=== PATIENT | male | born 1980 | race Caucasian/White ===

== ENCOUNTER 2019-12-11 23:00 | Observation (INO) | payer BC ==
[~2019-12-11] VITALS: Ht 188 cm; Wt 122.7 kg
[2019-12-11 23:15] LABS: BILIRUBIN,URINE SMALL (NEG); CLARITY,URINE CLEAR; COLOR,URINE AMBER; NITRITE,URINE NEGATIVE (NEG); PROTEIN,URINE NEGATIVE (NEG-TRACE)
[2019-12-11] MEDS ORDERED: IV NORMAL SALINE 1000ML BAG 1,000 ML IV ONE (23:15)
[2019-12-11 23:21] LABS: RBC,URINE OCC /HPF (0-2)
[2019-12-11 23:21] LABS: BASO # 0.1 x10^3/uL (0.0-0.2); BASO % 1 % (0-3); EOS # 0.3 x10^3/uL (0.0-0.7); EOS % 2 % (0-3); HEMATOCRIT 43.1 % (39.0-53.0); HEMOGLOBIN 14.8 g/dL (13.0-17.5); LYMPH # 3.1 x10^3/uL (1.0-4.8); LYMPH % 26 % (24-48); MEAN CORPUSCULAR HEMOGLOBIN 31 pg (25-35); MEAN CORPUSCULAR HGB CONC 34 g/dL (31-37); MEAN CORPUSCULAR VOLUME 89 fL (79-100); MONO # 0.7 x10^3/uL (0.0-1.1); MONO % 6 % (0-9); NEUT # 7.7 x10^3/uL (1.8-7.7); NEUT % 65 % (31-73); PLATELET COUNT 309 x10^3/uL (140-400); RED BLOOD COUNT 4.85 x10^6/uL (4.30-5.70); RED CELL DISTRIBUTION WIDTH 13.7 % (11.5-14.5); WHITE BLOOD COUNT 11.9 x10^3/uL (4.0-11.0)
[2019-12-11 23:22] LABS: BACTERIA,URINE FEW /HPF (0-FEW); GRANULAR CASTS,URINE FEW /HPF; HYALINE CASTS, URINE MODERATE /HPF; SQUAMOUS EPITHELIAL CELL,UR MOD /LPF
[2019-12-11 23:27] LABS: CALCIUM 8.5 mg/dL (8.5-10.1); CREATININE 1.3 mg/dL (0.7-1.3); GFR 60.8
[2019-12-11] MEDS ORDERED: KETOROLAC 30 MG/ML VIAL. IV ONE (23:30)
[2019-12-11] MEDS ORDERED: ONDANSETRON PF 4 MG/2 ML VIAL. IV ONE (23:30)
[2019-12-11] MEDS ORDERED: fentaNYL PF VIAL 100 MCG/2 ML VIAL IV ONE (23:30)
[2019-12-11] MEDS ORDERED: TAMSULOSIN 0.4 MG CAP.ER.24H. PO ONE (23:30)
[2019-12-11 23:32] LABS: ALBUMIN 3.5 g/dL (3.4-5.0); ALBUMIN/GLOBULIN RATIO 0.9 (1.0-1.7); TOTAL BILIRUBIN 0.5 mg/dL (0.2-1.0); TOTAL PROTEIN 7.3 g/dL (6.4-8.2)
--- NOTE | 2019-12-11 23:47 | PHYS DOC ---
Past Medical History Past Medical History: Kidney Stone General Adult EDM: Chief Complaint: BACK PAIN OR INJURY HPI: HPI: Patient is a 39-year-old male with a history of kidney stones who presents with an acute onset of left flank pain that radiates to his groin. States it started about an hour ago. He states that sharp in nature and unrelenting. He denies any fever chills or sweats. He says he has had some nausea secondary to the pain. He denies any dysuria or gross hematuria. He did not try to take anything at home to help alleviate the symptoms. He does state that he has been drinking plenty of fluids recently. [] Review of Systems: Review of Systems: Constitutional: Denies fever or chills. [] Eyes: Denies change in visual acuity. [] HENT: Denies nasal congestion or sore throat. [] Respiratory: Denies cough or shortness of breath. [] Cardiovascular: Denies chest pain or edema. [] GI: Per HPI. [] : Denies dysuria. [] Musculoskeletal: Denies back pain or joint pain. [] Integument: Denies rash. [] Neurologic: Denies headache, focal weakness or sensory changes. [] Endocrine: Denies polyuria or polydipsia. [] Lymphatic: Denies swollen glands. [] Psychiatric: Denies depression or anxiety. [] Heart Score: Risk Factors: Risk Factors: DM, Current or recent (<one month) smoker, HTN, HLP, family hi story of CAD, obesity. Risk Scores: Score 0 - 3: 2.5% MACE over next 6 weeks - Discharge Home Score 4 - 6: 20.3% MACE over next 6 weeks - Admit for Clinical Observation Score 7 - 10: 72.7% MACE over next 6 weeks - Early Invasive Strategies Current Medications: Current Medications Medications (Trade) Dose Ordered Sig/[facility] Start Time Stop Time Status Last Admin Dose Admin Fentanyl Citrate (Fentanyl 2ml Vial) 50 mcg 1X ONCE 12/11/19 23:30 12/11/19 23:31 DC 12/11/19 23:44 50 MCG Ketorolac Tromethamine (Toradol 30mg Vial) 30 mg 1X ONCE 12/11/19 23:30 12/11/19 23:31 DC 12/11/19 23:28 30 MG Ondansetron HCl (Zofran) 4 mg 1X ONCE 12/11/19 23:30 12/11/19 23:31 DC 12/11/19 23:27 4 MG Sodium Chloride 1,000 ml @ 1,000 mls/hr 1X ONCE 12/11/19 23:15 12/12/19 00:14 12/11/19 23:27 1,000 MLS/HR Tamsulosin HCl (Flomax) 0.4 mg 1X ONCE 12/11/19 23:30 12/11/19 23:31 DC 12/11/19 23:43 0.4 MG Allergies: Allergies: Allergies Coded Allergies Type Severity Reaction Last Updated Verified Penicillins Allergy Intermediate HIVES 12/11/19 Yes amoxicillin Allergy Intermediate HIVES 12/11/19 Yes Physical Exam: PE: Constitutional: Well developed, well nourished, moderate to severe distress, non-toxic appearance. [] HENT: Normocephalic, atraumatic, bilateral external ears normal, oropharynx moist, no oral exudates, nose normal. [] Eyes: PERRLA, EOMI, conjunctiva normal, no discharge. [] Neck: Normal range of motion, no tenderness, supple, no stridor. [] Cardiovascular:Heart rate regular rhythm, no murmur [] Lungs & Thorax: Bilateral breath sounds clear to auscultation [] Abdomen: Bowel sounds normal, soft, no tenderness, no masses, no pulsatile masses. [] Skin: Warm, dry, no erythema, no rash. [] Back: No tenderness, no CVA tenderness. [] Extremities: No tenderness, no cyanosis, no clubbing, ROM intact, no edema. [] Neurologic: Alert and oriented X 3, normal motor function, normal sensory function, no focal deficits noted. [] Psychologic: Extremely anxious. [] Current Patient Data: Labs: Laboratory Tests Test 12/11/19 23:00 12/11/19 23:07 Urine Collection Type Void Urine Color Re Urine Clarity Clear Urine pH 5.0 (<5.0-8.0) Urine Specific [place] 1.025 (1.000-1.030) Urine Protein Negative mg/dL (NEG-TRACE) Urine Glucose (UA) 100 mg/dL (NEG) Urine Ketones (Stick) Negative mg/dL (NEG) Urine Blood Small (NEG) Urine Nitrite Negative (NEG) Urine Bilirubin Small (NEG) Urine Urobilinogen Dipstick 1.0 mg/dL (0.2 mg/dL) Urine Leukocyte Esterase Negative (NEG) Urine RBC Occ /HPF (0-2) Urine WBC 1-4 /HPF (0-4) Urine Squamous Epithelial Cells Mod /LPF Urine Bacteria Few /HPF (0-FEW) Urine Hyaline Casts Moderate /HPF Urine Granular Casts Few /HPF Urine Mucus Marked /LPF White Blood Count 11.9 x10^3/uL (4.0-11.0) H Red Blood Count 4.85 x10^6/uL (4.30-5.70) Hemoglobin 14.8 g/dL (13.0-17.5) Hematocrit 43.1 % (39.0-53.0) Mean Corpuscular Volume 89 fL (79-100) Mean Corpuscular Hemoglobin 31 pg (25-35) Mean Corpuscular Hemoglobin Concent 34 g/dL (31-37) Red Cell Distribution Width 13.7 % (11.5-14.5) Platelet Count 309 x10^3/uL (140-400) Neutrophils (%) (Auto) 65 % (31-73) Lymphocytes (%) (Auto) 26 % (24-48) Monocytes (%) (Auto) 6 % (0-9) Eosinophils (%) (Auto) 2 % (0-3) Basophils (%) (Auto) 1 % (0-3) Neutrophils # (Auto) 7.7 x10^3/uL (1.8-7.7) Lymphocytes # (Auto) 3.1 x10^3/uL (1.0-4.8) Monocytes # (Auto) 0.7 x10^3/uL (0.0-1.1) Eosinophils # (Auto) 0.3 x10^3/uL (0.0-0.7) Basophils # (Auto) 0.1 x10^3/uL (0.0-0.2) Sodium Level 138 mmol/L (136-145) Potassium Level 4.0 mmol/L (3.5-5.1) Chloride Level 103 mmol/L (98-107) Carbon Dioxide Level 24 mmol/L (21-32) Anion Gap 11 (6-14) Blood Urea Nitrogen 13 mg/dL (8-26) Creatinine 1.3 mg/dL (0.7-1.3) Estimated GFR (Cockcroft-Gault) 60.8 BUN/Creatinine Ratio 10 (6-20) Glucose Level 142 mg/dL (70-99) H Calcium Level 8.5 mg/dL (8.5-10.1) Total Bilirubin 0.5 mg/dL (0.2-1.0) Aspartate Amino Transferase (AST) 36 U/L (15-37) Alanine Aminotransferase (ALT) 103 U/L (16-63) H Alkaline Phosphatase 103 U/L (46-116) Total Protein 7.3 g/dL (6.4-8.2) Albumin 3.5 g/dL (3.4-5.0) Albumin/Globulin Ratio 0.9 (1.0-1.7) L Lipase 71 U/L (73-393) L Laboratory Tests 12/11/19 23:07 Laboratory Tests 12/11/19 23:07 Vital Signs: Vital Signs Date Time Temp Pulse Resp B/P (MAP) Pulse Ox O2 Delivery O2 Flow Rate FiO2 12/11/19 23:44 30 97 EKG: EKG: [] Radiology/Procedures: Radiology/Procedures: []PROCEDURE: CT ABDOMEN PELVIS WO CONTRAST CT abdomen and pelvis without contrast: Reason for examination: Left flank pain. Helical images were obtained through the abdomen and pelvis with no intravenous or oral contrast administered. Reconstruction was performed in sagittal and coronal planes. Exposure: One or more of the following individualized dose reduction techniques were utilized for this examination: 1. Automated exposure control 2. Adjustment of the mA and/or kV according to patient size 3. Use of iterative reconstruction technique. There is a 1.5 cm nodule posterior medially at the left lung base as well as some additional 3.6 mm nodule posterior medially at the pleural surface at lower lobe. No other infiltrates or pleural effusions are seen. The heart size is normal with no pericardial effusion. No focal abnormality seen at the liver, spleen, adrenal glands, gallbladder or pancreas. There is a small splenule in the abdomen near the splenic hilum measuring approximately 1.5 cm in size. The abdominal aorta and inferior vena cava show no acute abnormalities. The right kidney shows no renal mass. There is a nonobstructing renal calculus in the midpole with no hydronephrosis or obstructive uropathy the right kidney. The left kidney shows no renal mass but there is mild hydronephrosis which appears be due to a 4.3 mm calculus at the left ureterovesical junction. There is no evidence of diverticulosis or diverticulitis or colitis. The appendix is not identified. The small intestinal tract shows no abnormal dilatation, wall thickening or evidence of obstruction. No abnormality seen at the stomach. IMPRESSION: 1.5 cm pulmonary nodule possibly containing some calcification posterior medially at the left lung base with an adjacent 3.6 mm noncalcified pulmonary nodule. Recommend follow-up according to Fleischner Society guidelines. 4.3 mm calculus at the left ureterovesical junction causing mild hydronephrosis. 3.4 mm nonobstructing calculus at the midpole of the right kidney. Course & Med Decision Making: Course & Med Decision Making Pertinent Labs and Imaging studies reviewed. (See chart for details) [ED course: Evaluation reveals a 39-year-old male with acute onset of left flank pain that radiated to the groin. He was given IV fluids, fentanyl 100 mcg IV, Dilaudid 1 mg IV, Zofran 4 mg IV, Toradol 30 mg IV and Flomax 0.4 mg with near complete resolution of his symptoms. CT scan showed a 3.4 mm UVJ stone causing mild hydronephrosis. After multiple doses of pain medication and a total of 2 L of IV fluids patient still had paroxysmal severe pain in the left flank to the groin. His stone is certainly small enough to pass on its own but at this point patient will need to be admitted for IV pain control and IV fluids..] [place] Disclaimer: [place] Disclaimer: This electronic medical record was generated, in whole or in part, using a voice recognition dictation system. Departure Departure Impression: Primary Impression: Ureteral stone with hydronephrosis Disposition: HOME, SELF-CARE Condition: IMPROVED Referrals: NO PCP (PCP) Patient Instructions: Diet for Kidney Stones, Kidney Stones Additional Instructions: It is extremely important to drink plenty of fluids over the next couple of days. Take your medication as directed. Return to the emergency department with any new or concerning symptoms Scripts Ondansetron (ONDANSETRON ODT) 4 Mg Tab.rapdis 1 TAB PO PRN Q6-8HRS for VOMITING, #16 TAB Prov: JANIE BAEZ DO 12/12/19 Hydrocodone/Apap 5-325 (NORCO 5-325 TABLET) 1 Each Tablet 1 TAB PO PRN Q6HRS PRN for PAIN, #15 TAB 0 Refills Prov: JANIE BAEZ DO 12/12/19 Tamsulosin Hcl (FLOMAX) 0.4 Mg Cap.er.24h 1 CAP PO DAILY, #30 CAP 11 Refills Prov: JANIE BAEZ DO 12/12/19 Ciprofloxacin Hcl (CIPRO) 500 Mg Tablet 1 TAB PO BID PRN for UTI, #20 TAB Prov: JANIE BAEZ DO 12/12/19 Justicifation of Admission Dx: Justifications for Admission: Justification of Admission Dx: Yes Comments: Ureteral stone with intractable pain JANIE BAEZ DO Dec 11, 2019 23:47
[2019-12-12] MEDS ORDERED: HYDROmorphone 2 MG/ML VIAL IVP ONE
--- NOTE | 2019-12-12 00:22 | RAD ---
CT abdomen and pelvis without contrast: Reason for examination: Left flank pain. Helical images were obtained through the abdomen and pelvis with no intravenous or oral contrast administered. Reconstruction was performed in sagittal and coronal planes. Exposure: One or more of the following individualized dose reduction techniques were utilized for this examination: 1. Automated exposure control 2. Adjustment of the mA and/or kV according to patient size 3. Use of iterative reconstruction technique. There is a 1.5 cm nodule posterior medially at the left lung base as well as some additional 3.6 mm nodule posterior medially at the pleural surface at lower lobe. No other infiltrates or pleural effusions are seen. The heart size is normal with no pericardial effusion. No focal abnormality seen at the liver, spleen, adrenal glands, gallbladder or pancreas. There is a small splenule in the abdomen near the splenic hilum measuring approximately 1.5 cm in size. The abdominal aorta and inferior vena cava show no acute abnormalities. The right kidney shows no renal mass. There is a nonobstructing renal calculus in the midpole with no hydronephrosis or obstructive uropathy the right kidney. The left kidney shows no renal mass but there is mild hydronephrosis which appears be due to a 4.3 mm calculus at the left ureterovesical junction. There is no evidence of diverticulosis or diverticulitis or colitis. The appendix is not identified. The small intestinal tract shows no abnormal dilatation, wall thickening or evidence of obstruction. No abnormality seen at the stomach. IMPRESSION: 1.5 cm pulmonary nodule possibly containing some calcification posterior medially at the left lung base with an adjacent 3.6 mm noncalcified pulmonary nodule. Recommend follow-up according to Fleischner Society guidelines. 4.3 mm calculus at the left ureterovesical junction causing mild hydronephrosis. 3.4 mm nonobstructing calculus at the midpole of the right kidney. Electronically signed by: Lucrecia Addison MD (12/12/2019 12:19 AM) [id number]
[2019-12-12] MEDS ORDERED: TAMS0.4C97 PO (00:56)
[2019-12-12] MEDS ORDERED: ONDA4TAB12 PO (00:56)
[2019-12-12] MEDS ORDERED: HYDR-3164 PO (00:56)
[2019-12-12] MEDS ORDERED: CIPR500T94 PO (00:56)
[2019-12-12] MEDS ORDERED: fentaNYL PF VIAL 100 MCG/2 ML VIAL IV ONE (01:00)
[2019-12-12] MEDS ORDERED: IV NORMAL SALINE 1000ML BAG 1,000 ML IV ONE (01:00)
[2019-12-12] MEDS ORDERED: fentaNYL PF VIAL 100 MCG/2 ML VIAL IV PRN (02:15)
[2019-12-12] MEDS ORDERED: IV NORMAL SALINE 1000ML BAG 1,000 ML IV SCH ×2 (02:15→11:30)
[2019-12-12] MEDS ORDERED: ONDANSETRON PF 4 MG/2 ML VIAL. IV PRN (02:15)
--- NOTE | 2019-12-12 03:40 | NUR ---
Admit from ER via w/c. C/o renal colic. BP 188/107. Call to Dr. Draper- patient hasn't been taking Lisinopril x 1 month due to "the dr never called it in." Lives in [place].
[2019-12-12 03:59] VITALS: BP 188/107
[2019-12-12] MEDS ORDERED: LISINOPRIL 20 MG TABLET PO ONE (05:15)
--- NOTE | 2019-12-12 05:45 | NUR ---
Lisinopril started per Dr. Draper's phone order. Patient states he wears a Cpap at but is unsure of the settings.
[2019-12-12 07:00] VITALS: BP 158/89
--- NOTE | 2019-12-12 09:52 | NUR ---
SW following. Discussed with RN, pt from home, independent, room air, regular diet. Pt passed stone last night - feeling better. RN advised no SW needs, anticipates possible discharge today. SW will continue to follow.
[2019-12-12 11:00] VITALS: BP 142/79
--- NOTE | 2019-12-12 11:26 | PDOC1 ---
History and Physical Date of Admission Date of Admission 12/12/2019 Identification/Chief Complaint Chief Complaint I have a kidney stone Source Source: Chart review, Patient History of Present Illness History of Present Illness Patient is a 39-year-old gentleman with past medical history of nephrolithiasis who was in his usual state of health until apparently 1 hour prior to his visit to the emergency department. Patient started experiencing sharp pain 10 out of 10 intensity associated with some chills and nausea but no emesis was reported. The patient promptly came to the emergency department since he knows when he is he getting an acute renal colic. The patient did not take anything at home to self medicate prior to his visit to the emergency department he try to stay well-hydrated unfortunately he was unable to pass the stone. The patient was given IV fluids and pain medications in the emergency department that unfortunately did not completely resolve his symptoms. Today he is on the ak dical floor in no apparent distress and he relates to me that he passed 1 of the stones in the emergency department bathroom prior to being taken up to the floors He seems comfortable at the moment no fever chills no CVA tenderness no hematuria has been reported today. Plan of care has been explained in detail all of his concerns addressed to the best of my abilities Past Medical History Past Medical History Nephrolithiasis Past Surgical History Past Surgical History: No pertinent history Family History Family History: No Significant Social History Smoke: No ALCOHOL: none Drugs: None Current Problem List Problem List Problems Medical Problems: (1) Ureteral stone with hydronephrosis Status: Acute Current Medications Current Medications Current Medications Medications (Trade) Dose Ordered Sig/[facility] Start Time Stop Time Status Last Admin Dose Admin Fentanyl Citrate (Fentanyl 2ml Vial) 50 mcg PRN Q1HR PRN 12/12/19 02:15 12/13/19 02:14 Hydromorphone HCl (Dilaudid) 1 mg 1X ONCE 12/12/19 00:00 12/12/19 00:01 DC 12/12/19 00:19 1 MG Ketorolac Tromethamine (Toradol 30mg Vial) 30 mg 1X ONCE 12/11/19 23:30 12/11/19 23:31 DC 12/11/19 23:28 30 MG Lisinopril (Prinivil) 20 mg 1X ONCE 12/12/19 05:15 12/12/19 05:16 DC 12/12/19 05:27 20 MG Ondansetron HCl (Zofran) 4 mg PRN Q8HRS PRN 12/12/19 02:15 12/13/19 02:14 Sodium Chloride 1,000 ml @ 150 mls/hr Q6H40M 12/12/19 02:15 12/12/19 07:33 DC 12/12/19 02:36 150 MLS/HR Tamsulosin HCl (Flomax) 0.4 mg 1X ONCE 12/11/19 23:30 12/11/19 23:31 DC 12/11/19 23:43 0.4 MG Allergies Allergies Allergies Coded Allergies Type Severity Reaction Last Updated Verified Penicillins Allergy Intermediate HIVES 12/11/19 Yes amoxicillin Allergy Intermediate HIVES 12/11/19 Yes ROS Review of System CONSTITUTIONAL: No fever or chills EYES: No recent changes SKIN: No rash or itching CARDIOVASCULAR: No chest pain, syncope, palpitations, or edema RESPIRATORY: No SOB or cough GASTROINTESTINAL: No nausea, vomiting or abdominal pain NEUROLOGICAL: No headaches or weakness ENDOCRINE: No cold or heat intolerance GENITOURINARY: No urgency or frequency of urination MUSCULOSKELETAL: No back pain or joint pain LYMPHATICS: No enlarged lymph nodes PSYCHIATRIC: No anxiety or depression Physical Exam Physical Exam GEN.: No apparent distress. Alert and oriented. HEENT: Head is normocephalic, atraumatic NECK: Supple. LUNGS: Clear to auscultation. HEART: RRR, S1, S2 present. Peripheral pulses intact ABDOMEN: Soft, nontender. Positive bowel sounds. EXTREMITIES: Without any cyanosis. NEUROLOGIC: Normal speech, normal tone PSYCHIATRIC: Normal affect, normal mood. SKIN: No ulcerations Vitals Vitals Vital Signs Date Time Temp Pulse Resp B/P (MAP) Pulse Ox O2 Delivery O2 Flow Rate FiO2 12/12/19 07:00 97.9 61 18 158/89 (112) 100 Room Air 97.9 Labs Labs Laboratory Tests Test 12/11/19 23:00 12/11/19 23:07 Urine Collection Type Void Urine Color Re Urine Clarity Clear Urine pH 5.0 (<5.0-8.0) Urine Specific [place] 1.025 (1.000-1.030) Urine Protein Negative mg/dL (NEG-TRACE) Urine Glucose (UA) 100 mg/dL (NEG) Urine Ketones (Stick) Negative mg/dL (NEG) Urine Blood Small (NEG) Urine Nitrite Negative (NEG) Urine Bilirubin Small (NEG) Urine Urobilinogen Dipstick 1.0 mg/dL (0.2 mg/dL) Urine Leukocyte Esterase Negative (NEG) Urine RBC Occ /HPF (0-2) Urine WBC 1-4 /HPF (0-4) Urine Squamous Epithelial Cells Mod /LPF Urine Bacteria Few /HPF (0-FEW) Urine Hyaline Casts Moderate /HPF Urine Granular Casts Few /HPF Urine Mucus Marked /LPF White Blood Count 11.9 x10^3/uL (4.0-11.0) Red Blood Count 4.85 x10^6/uL (4.30-5.70) Hemoglobin 14.8 g/dL (13.0-17.5) Hematocrit 43.1 % (39.0-53.0) Mean Corpuscular Volume 89 fL (79-100) Mean Corpuscular Hemoglobin 31 pg (25-35) Mean Corpuscular Hemoglobin Concent 34 g/dL (31-37) Red Cell Distribution Width 13.7 % (11.5-14.5) Platelet Count 309 x10^3/uL (140-400) Neutrophils (%) (Auto) 65 % (31-73) Lymphocytes (%) (Auto) 26 % (24-48) Monocytes (%) (Auto) 6 % (0-9) Eosinophils (%) (Auto) 2 % (0-3) Basophils (%) (Auto) 1 % (0-3) Neutrophils # (Auto) 7.7 x10^3/uL (1.8-7.7) Lymphocytes # (Auto) 3.1 x10^3/uL (1.0-4.8) Monocytes # (Auto) 0.7 x10^3/uL (0.0-1.1) Eosinophils # (Auto) 0.3 x10^3/uL (0.0-0.7) Basophils # (Auto) 0.1 x10^3/uL (0.0-0.2) Sodium Level 138 mmol/L (136-145) Potassium Level 4.0 mmol/L (3.5-5.1) Chloride Level 103 mmol/L (98-107) Carbon Dioxide Level 24 mmol/L (21-32) Anion Gap 11 (6-14) Blood Urea Nitrogen 13 mg/dL (8-26) Creatinine 1.3 mg/dL (0.7-1.3) Estimated GFR (Cockcroft-Gault) 60.8 BUN/Creatinine Ratio 10 (6-20) Glucose Level 142 mg/dL (70-99) Calcium Level 8.5 mg/dL (8.5-10.1) Total Bilirubin 0.5 mg/dL (0.2-1.0) Aspartate Amino Transf (AST/SGOT) 36 U/L (15-37) Alanine Aminotransferase (ALT/SGPT) 103 U/L (16-63) Alkaline Phosphatase 103 U/L (46-116) Total Protein 7.3 g/dL (6.4-8.2) Albumin 3.5 g/dL (3.4-5.0) Albumin/Globulin Ratio 0.9 (1.0-1.7) Lipase 71 U/L (73-393) Laboratory Tests Test 12/11/19 23:00 12/11/19 23:07 Urine Collection Type Void Urine Color Re Urine Clarity Clear Urine pH 5.0 (<5.0-8.0) Urine Specific [place] 1.025 (1.000-1.030) Urine Protein Negative mg/dL (NEG-TRACE) Urine Glucose (UA) 100 mg/dL (NEG) Urine Ketones (Stick) Negative mg/dL (NEG) Urine Blood Small (NEG) Urine Nitrite Negative (NEG) Urine Bilirubin Small (NEG) Urine Urobilinogen Dipstick 1.0 mg/dL (0.2 mg/dL) Urine Leukocyte Esterase Negative (NEG) Urine RBC Occ /HPF (0-2) Urine WBC 1-4 /HPF (0-4) Urine Squamous Epithelial Cells Mod /LPF Urine Bacteria Few /HPF (0-FEW) Urine Hyaline Casts Moderate /HPF Urine Granular Casts Few /HPF Urine Mucus Marked /LPF White Blood Count 11.9 x10^3/uL (4.0-11.0) Red Blood Count 4.85 x10^6/uL (4.30-5.70) Hemoglobin 14.8 g/dL (13.0-17.5) Hematocrit 43.1 % (39.0-53.0) Mean Corpuscular Volume 89 fL (79-100) Mean Corpuscular Hemoglobin 31 pg (25-35) Mean Corpuscular Hemoglobin Concent 34 g/dL (31-37) Red Cell Distribution Width 13.7 % (11.5-14.5) Platelet Count 309 x10^3/uL (140-400) Neutrophils (%) (Auto) 65 % (31-73) Lymphocytes (%) (Auto) 26 % (24-48) Monocytes (%) (Auto) 6 % (0-9) Eosinophils (%) (Auto) 2 % (0-3) Basophils (%) (Auto) 1 % (0-3) Neutrophils # (Auto) 7.7 x10^3/uL (1.8-7.7) Lymphocytes # (Auto) 3.1 x10^3/uL (1.0-4.8) Monocytes # (Auto) 0.7 x10^3/uL (0.0-1.1) Eosinophils # (Auto) 0.3 x10^3/uL (0.0-0.7) Basophils # (Auto) 0.1 x10^3/uL (0.0-0.2) Sodium Level 138 mmol/L (136-145) Potassium Level 4.0 mmol/L (3.5-5.1) Chloride Level 103 mmol/L (98-107) Carbon Dioxide Level 24 mmol/L (21-32) Anion Gap 11 (6-14) Blood Urea Nitrogen 13 mg/dL (8-26) Creatinine 1.3 mg/dL (0.7-1.3) Estimated GFR (Cockcroft-Gault) 60.8 BUN/Creatinine Ratio 10 (6-20) Glucose Level 142 mg/dL (70-99) Calcium Level 8.5 mg/dL (8.5-10.1) Total Bilirubin 0.5 mg/dL (0.2-1.0) Aspartate Amino Transf (AST/SGOT) 36 U/L (15-37) Alanine Aminotransferase (ALT/SGPT) 103 U/L (16-63) Alkaline Phosphatase 103 U/L (46-116) Total Protein 7.3 g/dL (6.4-8.2) Albumin 3.5 g/dL (3.4-5.0) Albumin/Globulin Ratio 0.9 (1.0-1.7) Lipase 71 U/L (73-393) Images Images Radiology/Procedures: []PROCEDURE: CT ABDOMEN PELVIS WO CONTRAST CT abdomen and pelvis without contrast: Reason for examination: Left flank pain. Helical images were obtained through the abdomen and pelvis with no intravenous or oral contrast administered. Reconstruction was performed in sagittal and coronal planes. Exposure: One or more of the following individualized dose reduction techniques were utilized for this examination: 1. Automated exposure control 2. Adjustment of the mA and/or kV according to patient size 3. Use of iterative reconstruction technique. There is a 1.5 cm nodule posterior medially at the left lung base as well as some additional 3.6 mm nodule posterior medially at the pleural surface at lower lobe. No other infiltrates or pleural effusions are seen. The heart size is normal with no pericardial effusion. No focal abnormality seen at the liver, spleen, adrenal glands, gallbladder or pancreas. There is a small splenule in the abdomen near the splenic hilum measuring approximately 1.5 cm in size. The abdominal aorta and inferior vena cava show no acute abnormalities. The right kidney shows no renal mass. There is a nonobstructing renal calculus in the midpole with no hydronephrosis or obstructive uropathy the right kidney. The left kidney shows no renal mass but there is mild hydronephrosis which appears be due to a 4.3 mm calculus at the left ureterovesical junction. There is no evidence of diverticulosis or diverticulitis or colitis. The appendix is not identified. The small intestinal tract shows no abnormal dilatation, wall thickening or evidence of obstruction. No abnormality seen at the stomach. IMPRESSION: 1.5 cm pulmonary nodule possibly containing some calcification posterior medially at the left lung base with an adjacent 3.6 mm noncalcified pulmonary nodule. Recommend follow-up according to Fleischner Society guidelines. 4.3 mm calculus at the left ureterovesical junction causing mild hydronephrosis. 3.4 mm nonobstructing calculus at the midpole of the right kidney. VTE Prophylaxis Ordered VTE Prophylaxis Devices: Yes VTE Pharmacological Prophylaxi: No Assessment/Plan Assessment/Plan Bilateral nephrolithiasis Obesity with a BMI of 34 Leukocytosis Hyperglycemia Mild transaminitis Plan We will order hemoglobin A1c given his body habitus We will follow his leukocytosis in the a.m. he does not seem toxic or having fevers unlikely to have an active infection We will order procalcitonin Dietary counseling will be done DVT prophylaxis with SCDs Justicifation of Admission Dx: Justifications for Admission: Justification of Admission Dx: Yes FELICITA VILLAGOMEZ MD Dec 12, 2019 11:26
[2019-12-12] MEDS: TAMSULOSIN 0.4 MG CAP.ER.24H. PO SCH (13:44)
[2019-12-12 15:00] VITALS: BP 148/78
[2019-12-12 19:14] VITALS: BP 122/69
[2019-12-12 23:00] VITALS: BP 150/72
[2019-12-13 03:20] VITALS: BP 123/78
[2019-12-13 06:40] LABS: BASO % 0 % (0-3); EOS # 0.1 x10^3/uL (0.0-0.7); EOS % 2 % (0-3); HEMATOCRIT 38.4 % (39.0-53.0); LYMPH # 1.9 x10^3/uL (1.0-4.8); LYMPH % 32 % (24-48); MEAN CORPUSCULAR HEMOGLOBIN 30 pg (25-35); MEAN CORPUSCULAR HGB CONC 34 g/dL (31-37); MEAN CORPUSCULAR VOLUME 90 fL (79-100); MONO # 0.4 x10^3/uL (0.0-1.1); MONO % 6 % (0-9); NEUT # 3.6 x10^3/uL (1.8-7.7); NEUT % 60 % (31-73); PLATELET COUNT 214 x10^3/uL (140-400); RED BLOOD COUNT 4.27 x10^6/uL (4.30-5.70); RED CELL DISTRIBUTION WIDTH 13.7 % (11.5-14.5)
[2019-12-13 07:00] VITALS: BP 148/93
[2019-12-13 07:04] LABS: ALBUMIN 2.9 g/dL (3.4-5.0); ALBUMIN/GLOBULIN RATIO 0.9 (1.0-1.7); CALCIUM 8.2 mg/dL (8.5-10.1); GFR 82.3; POTASSIUM 4.2 mmol/L (3.5-5.1); TOTAL BILIRUBIN 0.3 mg/dL (0.2-1.0); TOTAL PROTEIN 6.2 g/dL (6.4-8.2)
[2019-12-13 07:05] LABS: CHOLESTEROL/HDL RATIO 7.5
[2019-12-13] MEDS ORDERED: LISINOPRIL 20 MG TABLET PO SCH (09:00)
[2019-12-13] MEDS: TAMSULOSIN 0.4 MG CAP.ER.24H. PO SCH (09:56)
[2019-12-13] MEDS ORDERED: LISI-334 PO (10:35)
[2019-12-13] MEDS ORDERED: TAMS0.4C97 PO (10:35)
--- NOTE | 2019-12-13 10:38 | PDOC3 ---
Discharge Summary Visit Information Date of Admission: Dec 12, 2019 Date of Discharge: Dec 13, 2019 Final Diagnosis Bilateral nephrolithiasis Obesity with a BMI of 34 Leukocytosis Hyperglycemia Mild transaminitis hypertension Problems Medical Problems: (1) Ureteral stone with hydronephrosis Status: Acute Brief Hospital Course Allergies Allergies Coded Allergies Type Severity Reaction Last Updated Verified Penicillins Allergy Intermediate HIVES 12/11/19 Yes amoxicillin Allergy Intermediate HIVES 12/11/19 Yes Vital Signs Vital Signs Date Time Temp Pulse Resp B/P (MAP) Pulse Ox O2 Delivery O2 Flow Rate FiO2 12/13/19 09:56 71 148/93 12/13/19 07:00 98.0 18 97 Room Air 98.0 12/12/19 11:00 2.0 Lab Results Laboratory Tests Test 12/11/19 23:00 12/11/19 23:07 12/13/19 05:42 Urine Collection Type Void Urine Color Re Urine Clarity Clear Urine pH 5.0 (<5.0-8.0) Urine Specific [place] 1.025 (1.000-1.030) Urine Protein Negative mg/dL (NEG-TRACE) Urine Glucose (UA) 100 mg/dL (NEG) Urine Ketones (Stick) Negative mg/dL (NEG) Urine Blood Small (NEG) Urine Nitrite Negative (NEG) Urine Bilirubin Small (NEG) Urine Urobilinogen Dipstick 1.0 mg/dL (0.2 mg/dL) Urine Leukocyte Esterase Negative (NEG) Urine RBC Occ /HPF (0-2) Urine WBC 1-4 /HPF (0-4) Urine Squamous Epithelial Cells Mod /LPF Urine Bacteria Few /HPF (0-FEW) Urine Hyaline Casts Moderate /HPF Urine Granular Casts Few /HPF Urine Mucus Marked /LPF White Blood Count 11.9 x10^3/uL (4.0-11.0) 6.0 x10^3/uL (4.0-11.0) Red Blood Count 4.85 x10^6/uL (4.30-5.70) 4.27 x10^6/uL (4.30-5.70) Hemoglobin 14.8 g/dL (13.0-17.5) 13.0 g/dL (13.0-17.5) Hematocrit 43.1 % (39.0-53.0) 38.4 % (39.0-53.0) Mean Corpuscular Volume 89 fL (79-100) 90 fL (79-100) Mean Corpuscular Hemoglobin 31 pg (25-35) 30 pg (25-35) Mean Corpuscular Hemoglobin Concent 34 g/dL (31-37) 34 g/dL (31-37) Red Cell Distribution Width 13.7 % (11.5-14.5) 13.7 % (11.5-14.5) Platelet Count 309 x10^3/uL (140-400) 214 x10^3/uL (140-400) Neutrophils (%) (Auto) 65 % (31-73) 60 % (31-73) Lymphocytes (%) (Auto) 26 % (24-48) 32 % (24-48) Monocytes (%) (Auto) 6 % (0-9) 6 % (0-9) Eosinophils (%) (Auto) 2 % (0-3) 2 % (0-3) Basophils (%) (Auto) 1 % (0-3) 0 % (0-3) Neutrophils # (Auto) 7.7 x10^3/uL (1.8-7.7) 3.6 x10^3/uL (1.8-7.7) Lymphocytes # (Auto) 3.1 x10^3/uL (1.0-4.8) 1.9 x10^3/uL (1.0-4.8) Monocytes # (Auto) 0.7 x10^3/uL (0.0-1.1) 0.4 x10^3/uL (0.0-1.1) Eosinophils # (Auto) 0.3 x10^3/uL (0.0-0.7) 0.1 x10^3/uL (0.0-0.7) Basophils # (Auto) 0.1 x10^3/uL (0.0-0.2) 0.0 x10^3/uL (0.0-0.2) Sodium Level 138 mmol/L (136-145) 140 mmol/L (136-145) Potassium Level 4.0 mmol/L (3.5-5.1) 4.2 mmol/L (3.5-5.1) Chloride Level 103 mmol/L (98-107) 107 mmol/L (98-107) Carbon Dioxide Level 24 mmol/L (21-32) 26 mmol/L (21-32) Anion Gap 11 (6-14) 7 (6-14) Blood Urea Nitrogen 13 mg/dL (8-26) 11 mg/dL (8-26) Creatinine 1.3 mg/dL (0.7-1.3) 1.0 mg/dL (0.7-1.3) Estimated GFR (Cockcroft-Gault) 60.8 82.3 BUN/Creatinine Ratio 10 (6-20) 11 (6-20) Glucose Level 142 mg/dL (70-99) 123 mg/dL (70-99) Calcium Level 8.5 mg/dL (8.5-10.1) 8.2 mg/dL (8.5-10.1) Total Bilirubin 0.5 mg/dL (0.2-1.0) 0.3 mg/dL (0.2-1.0) Aspartate Amino Transf (AST/SGOT) 36 U/L (15-37) 28 U/L (15-37) Alanine Aminotransferase (ALT/SGPT) 103 U/L (16-63) 83 U/L (16-63) Alkaline Phosphatase 103 U/L (46-116) 77 U/L (46-116) Total Protein 7.3 g/dL (6.4-8.2) 6.2 g/dL (6.4-8.2) Albumin 3.5 g/dL (3.4-5.0) 2.9 g/dL (3.4-5.0) Albumin/Globulin Ratio 0.9 (1.0-1.7) 0.9 (1.0-1.7) Lipase 71 U/L (73-393) Triglycerides Level 160 mg/dL (0-150) Cholesterol Level 172 mg/dL (0-200) LDL Cholesterol, Calculated 117 mg/dL (0-100) VLDL Cholesterol, Calculated 32 mg/dL (0-40) Non-HDL Cholesterol Calculated 149 mg/dL (0-129) HDL Cholesterol 23 mg/dL (40-60) Cholesterol/HDL Ratio 7.5 Laboratory Tests Test 12/13/19 05:42 White Blood Count 6.0 x10^3/uL (4.0-11.0) Red Blood Count 4.27 x10^6/uL (4.30-5.70) Hemoglobin 13.0 g/dL (13.0-17.5) Hematocrit 38.4 % (39.0-53.0) Mean Corpuscular Volume 90 fL (79-100) Mean Corpuscular Hemoglobin 30 pg (25-35) Mean Corpuscular Hemoglobin Concent 34 g/dL (31-37) Red Cell Distribution Width 13.7 % (11.5-14.5) Platelet Count 214 x10^3/uL (140-400) Neutrophils (%) (Auto) 60 % (31-73) Lymphocytes (%) (Auto) 32 % (24-48) Monocytes (%) (Auto) 6 % (0-9) Eosinophils (%) (Auto) 2 % (0-3) Basophils (%) (Auto) 0 % (0-3) Neutrophils # (Auto) 3.6 x10^3/uL (1.8-7.7) Lymphocytes # (Auto) 1.9 x10^3/uL (1.0-4.8) Monocytes # (Auto) 0.4 x10^3/uL (0.0-1.1) Eosinophils # (Auto) 0.1 x10^3/uL (0.0-0.7) Basophils # (Auto) 0.0 x10^3/uL (0.0-0.2) Sodium Level 140 mmol/L (136-145) Potassium Level 4.2 mmol/L (3.5-5.1) Chloride Level 107 mmol/L (98-107) Carbon Dioxide Level 26 mmol/L (21-32) Anion Gap 7 (6-14) Blood Urea Nitrogen 11 mg/dL (8-26) Creatinine 1.0 mg/dL (0.7-1.3) Estimated GFR (Cockcroft-Gault) 82.3 BUN/Creatinine Ratio 11 (6-20) Glucose Level 123 mg/dL (70-99) Calcium Level 8.2 mg/dL (8.5-10.1) Total Bilirubin 0.3 mg/dL (0.2-1.0) Aspartate Amino Transf (AST/SGOT) 28 U/L (15-37) Alanine Aminotransferase (ALT/SGPT) 83 U/L (16-63) Alkaline Phosphatase 77 U/L (46-116) Total Protein 6.2 g/dL (6.4-8.2) Albumin 2.9 g/dL (3.4-5.0) Albumin/Globulin Ratio 0.9 (1.0-1.7) Triglycerides Level 160 mg/dL (0-150) Cholesterol Level 172 mg/dL (0-200) LDL Cholesterol, Calculated 117 mg/dL (0-100) VLDL Cholesterol, Calculated 32 mg/dL (0-40) Non-HDL Cholesterol Calculated 149 mg/dL (0-129) HDL Cholesterol 23 mg/dL (40-60) Cholesterol/HDL Ratio 7.5 Brief Hospital Course 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, post flank pain, stone passed overnight, felt well, DC home needs primary care f/u, has been out of his lisinopril, start flomax uro follow up if pain recurs, Discharge Information Condition at Discharge: Improved Follow Up: Weeks Disposition/Orders: D/C to Home Scheduled Lisinopril (Lisinopril) 20 Mg Tablet, 1 TAB PO DAILY for hypertension, #30 Ref 5 Prescribed by: JUAN ALBERTO FOX on 12/13/19 1035 Tamsulosin Hcl (Flomax) 0.4 Mg Cap.er.24h, 1 CAP PO DAILY for renal stone, #30 Ref 5 Prescribed by: JUAN ALBERTO FOX on 12/13/19 1035 Discontinued Medications Ciprofloxacin Hcl (Cipro) 500 Mg Tablet, 1 TAB PO BID PRN for UTI, #20 Prescribed by: JANIE BAEZ D.OCara on 12/12/19 0056 Hydrocodone/Apap 5-325 ([place] 5-325 Tablet) 1 Each Tablet, 1 TAB PO PRN Q6HRS PRN for PAIN, #15 Ref 0 Prescribed by: JANIE BAEZ D.O. on 12/12/19 0056 Ondansetron (Ondansetron Odt) 4 Mg Tab.rapdis, 1 TAB PO PRN Q6-8HRS for VOMITING, #16 Prescribed by: JANIE BAEZ D.O. on 12/12/19 0056 Justicifation of Admission Dx: Justifications for Admission: Justification of Admission Dx: Yes JUAN ALBERTO FOX MD Dec 13, 2019 10:38
[2019-12-13 10:50] VITALS: BP 166/92
--- NOTE | 2019-12-13 11:11 | NUR ---
SW following. Discussed with RN, discharge order for home with self care. No SW needs.
[2019-12-14 00:09] LABS: HEMOGLOBIN A1C 5.9 % (4.8-5.6)
== END 2019-12-13 14:05 | disposition home or self-care (01) ==
LOC: ER 23:00 → 4 NORTH 12-12 02:10
PROVIDERS: ADMIT Internal Medicine; ATTEND Internal Medicine
DX: N13.2 Hydronephrosis with renal and ureteral calculous obstruction (principal); I10 Essential (primary) hypertension; D72.829 Elevated white blood cell count, unspecified; E66.9 Obesity, unspecified; Z87.442 Personal history of urinary calculi; Z88.0 Allergy status to penicillin; Z88.1 Allergy status to other antibiotic agents; Z68.34 Body mass index [BMI] 34.0-34.9, adult
CPT/HCPCS: 36415; 74176; 80053; 80061; 81001; 83036; 83690; 85025; 96374; 96375; 96376; 99284; G0378; J1170; J1885; J2405; J3010; J7030; G0379